=== PATIENT | female | born 1990 | race African-American/Black ===

== ENCOUNTER 2020-05-20 21:41 | Emergency (ER) | payer OTHER ==
[~2020-05-20] VITALS: Ht 172.7 cm; Wt 76.2 kg
--- NOTE | 2020-05-20 21:45 | NUR ---
CALLED PATIENT TO BE TRIAGED 3X. NOT IN WAITING ROOM. CALLED PT'S NUMBER ON FILE, NO ANSWER.
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
--- NOTE | 2020-05-20 22:35 | NUR ---
PT UNABLE TO PROVIDE URINE SAMPLE AT THIS TIME. WAIVER SIGNED AND PLACED IN PATIENT CHART
[2020-05-20] MEDS ORDERED: ACETAMINOPHEN ES 500 MG TABLET ONE (22:42)
[2020-05-20] MEDS ORDERED: IBUPROFEN 600 MG TABLET ONE (22:42)
--- NOTE | 2020-05-20 22:57 | NUR ---
BACK FROM CT
[2020-05-20] MEDS ORDERED: ACETAMINOPHEN ES 500 MG TABLET PO ONE (23:00)
[2020-05-20] MEDS ORDERED: IBUPROFEN 600 MG TABLET PO ONE (23:00)
[2020-05-20] MEDS ORDERED: IBUP-1957 PO (23:32)
[2020-05-20] MEDS ORDERED: METH-406 PO (23:32)
--- NOTE | 2020-05-20 23:44 | NUR ---
PT IS MEDICALLY STABLE FOR D/C. Patient discharged to home in stable condition. Rx and Written and verbal after care instructions given. Patient verbalizes understanding of instruction.
[2020-05-21 00:12] VITALS: BP 131/66
== END 2020-05-20 23:45 | disposition home or self-care (01) ==
LOC: ER 21:51
DX: S16.1XXA Strain of muscle, fascia and tendon at neck level, initial encounter (principal); M54.6 Pain in thoracic spine; R51.9 Headache, unspecified; V49.59XA Passenger injured in collision with other motor vehicles in traffic accident, initial encounter; Y93.89 Activity, other specified; Y92.413 State road as the place of occurrence of the external cause; Y99.8 Other external cause status
CPT/HCPCS: 70450-TC; 72125-TC